=== PATIENT | male | born 1960 | race Two or more races ===

== ENCOUNTER 2016-07-16 11:44 | Emergency (ER) | payer OTHER ==
[2016-07-16] MEDS ORDERED: ONDANSETRON 4 MG/2 ML VIAL IVP ONE (12:08)
[2016-07-16] MEDS ORDERED: NS 1,000 ML IV ONE (12:08)
--- NOTE | 2016-07-16 12:22 | CPEKG ---
Heart Rate: 56 RR Interval: 1071 P-R Interval: 208 QRSD Interval: 98 QT Interval: 432 QTC Interval: 417 P Chapman: 27 QRS Chapman: 63 T Wave Chapman: 137 EKG Severity - ABNORMAL ECG - EKG Impression: SINUS RHYTHM EKG Impression: BORDERLINE INFERIOR Q WAVES EKG Impression: REPOL ABNRM SUGGESTS ISCHEMIA, ANT-LAT LEADS Electronically Signed By: Catracho Coto 16-Jul-2016 13:09:42
[2016-07-16 12:25] VITALS: O2SAT 96
[2016-07-16 12:40] LABS: % IMMATURE GRANULYOCYTES 0.2 % (0.0-1.1); ABSOLUTE IMMATURE GRANULOCYTES 0.02 10^3/uL (0.00-0.10); ADD DIFF? NO; ADD MORPH? NO; ADD SCAN? NO; ATYPICAL LYMPHOCYTE FLAG 10 (0-99); FRAGMENT RBC FLAG 0 (0-99); HEMATOCRIT 43.3 % (40.0-51.0); HEMOGLOBIN 14.6 g/dL (13.7-17.5); LEFT SHIFT FLG 0 (0-99); LIPEMIA HEMOLYSIS FLAG 80 (0-99); MEAN CELL HEMOGLOBIN 28.8 pg (27.9-34.1); MEAN CELL HEMOGLOBIN CONCENTR. 33.7 g/dL (32.4-36.7); MEAN CELL VOLUME 85.4 fL (81.5-99.8); MEAN PLATELET VOLUME 9.9 fL (8.7-11.7); PLATELET CLUMPS FLAG 0 (0-99); PLATELET COUNT 205 10^3/uL (150-400); RED BLOOD CELL COUNT 5.07 10^6/uL (4.40-6.38); RED CELL DISTRIBUTION WIDTH 12.5 % (11.5-15.2)
[2016-07-16 12:56] LABS: ANION GAP 14 mEq/L (8-16); CALCIUM 9.2 mg/dL (8.5-10.4); CARBON DIOXIDE 24 mEq/l (22-31); CHLORIDE 105 mEq/L (97-110); CREATININE 0.8 mg/dL (0.7-1.3); GLOMERULAR FILTRATION RATE > 60; GLUCOSE 121 mg/dL (70-100); POTASSIUM 3.9 mEq/L (3.5-5.2); SODIUM 143 mEq/L (134-144)
[2016-07-16] MEDS ORDERED: MECLIZINE HCL 25 MG TAB PO ONE (12:58)
--- NOTE | 2016-07-16 13:10 | EDPHY ---
H & P Stated Complaint: dizzy HTN & vomitting Time Seen by Provider: 07/16/16 12:43 HPI/ROS: CHIEF COMPLAINT: Vertigo, vomiting HISTORY OF PRESENT ILLNESS: The patient is a 56-year-old man who comes to the emergency department complaining of vertigo. He has had the symptoms for about 2 hours. They began suddenly at 11:00 a.m. when he was looking up and down at a shelf. He has never had these symptoms before. They are worsening with head position or movement. They are okay when he is calm. He feels a spinning sensation. He does not feel that he is going to faint. He denies chest pain or shortness of breath. No fevers or recent illness. REVIEW OF SYSTEMS: Constitutional: denies: chills, fever, recent illness, recent injury EENTM: denies: blurred vision, double vision, nose congestion Respiratory: denies: cough, shortness of breath Cardiac: denies: chest pain, irregular heart rate, lightheadedness, palpitations Gastrointestinal/Abdominal: denies: abdominal pain, diarrhea, nausea, vomiting, blood streaked stools Genitourinary: denies: dysuria, frequency, hematuria, pain Musculoskeletal: denies: joint pain, muscle pain Skin: denies: lesions, rash, jaundice, bruising Neurological: See HPI denies: headache, numbness, paresthesia, tingling, weakness Hematologic/Lymphatic: denies: blood clots, easy bleeding, easy bruising Immunologic/allergic: denies: HIV/AIDS, transplant EXAM: GENERAL: Well-appearing, well-nourished and in no acute distress. HEAD: Atraumatic, normocephalic. EYES: Pupils equal round and reactive to light, extraocular movements intact, sclera anicteric, conjunctiva are normal. Statements primarily when looking to the left. ENT: TMs normal, nares patent, oropharynx clear without exudates. Moist mucous membranes. NECK: Normal range of motion, supple without lymphadenopathy or JVD. LUNGS: Breath sounds clear to auscultation bilaterally and equal. No wheezes rales or rhonchi. HEART: Regular rate and rhythm without murmurs, rubs or gallops. ABDOMEN: Soft, nontender, normoactive bowel sounds. No guarding, no rebound. No masses appreciated. BACK: No CVA tenderness, no spinal tenderness, step-offs or deformities EXTREMITIES: Normal range of motion, no pitting or edema. No clubbing or cyanosis. NEUROLOGICAL: NIH stroke score is 0. Cranial nerves II through XII grossly intact. Normal speech, normal gait. 5/5 strength, normal movement in all extremities, normal sensation, normal cerebellar exam, no pronator drift PSYCH: Normal mood, normal affect. SKIN: Warm, dry, normal turgor, no visible rashes or lesions. Source: Patient Exam Limitations: No limitations - Personal History Current Tetanus/Diphtheria Vaccine: Unsure Current Tetanus Diphtheria and Acellular Pertussis (TDAP): Unsure - Medical/Surgical History Hx Asthma: No Hx Chronic Respiratory Disease: No Hx Diabetes: No Hx Cardiac Disease: Yes Hx Renal Disease: No Hx Cirrhosis: No Hx Alcoholism: No Hx HIV/AIDS: No Hx Splenectomy or Spleen Trauma: No Other PMH: high chol, HTN, AMI X2, blood thinner - Family History Significant Family History: No pertinent family hx - Social History Smoking Status: Never smoked Alcohol Use: Sober Drug Use: None Constitutional: Initial Vital Signs Temperature (C) 36.4 C 07/16/16 11:47 Heart Rate 54 L 07/16/16 11:47 Respiratory Rate 16 07/16/16 11:47 Blood Pressure 156/97 H 07/16/16 11:47 O2 Sat (%) 94 07/16/16 11:47 O2 Delivery Mode Nasal Cannula O2 (L/minute) 1 Allergies/Adverse Reactions: No Known Allergies Allergy (Unverified 07/16/16 11:50) Home Medications: Medication Instructions Recorded Meclizine HCl [Meclizine HCl 25 mg 25 mg PO BID #0 tab 07/16/16 (RX,OTC)] Medical Decision Making - Diagnostics EKG Interpretation: An EKG obtained and was read and documented in trace view. Please see trace view for full reading and report. Sinus rhythm rate of 56, T-wave inversions inferior and laterally, no previous for comparison ED Course/Re-evaluation: The patient has nystagmus and complains of intermittent vertigo and nausea. He has nystagmus when looking to the left. Maxine maneuver performed and the patient is feeling much better. 1:30 p.m. the patient is feeling completely better. His hypertension has resolved. He no longer gets nystagmus with turning from left to right. He has received meclizine. We will continue to observe. 2:40 p.m. patient is feeling completely better. He is eager to go home. I have written him a prescription for meclizine. I will have him follow up with ENT. His family agrees with this plan. We discussed indications for returning. Additional verbal discharge instructions given. Differential Diagnosis: Partial list of the Differential diagnosis considered include but were not limited to; benign positional vertigo, CVA, infection and although unlikely based on the history and physical exam, I also considered aneurysm, dissection , neuropathy. I discussed these differential diagnoses and the plan with the patient as well as the usual and expected course. The patient understands that the diagnosis is provisional and that in medicine we are not always correct and that further workup is often warranted. Usual and customary warnings were given. All of the patient's questions were answered. The patient was instructed to return to the emergency department should the symptoms at all worsen or return, otherwise to followup with the physician as we discussed. - Data Points Laboratory Results: Laboratory Results 07/16/16 12:01 07/16/16 12:01 07/16/16 12:01 WBC 9.59 H 10^3/uL (3.80-9.50) RBC 5.07 10^6/uL (4.40-6.38) Hgb 14.6 g/dL (13.7-17.5) Hct 43.3 % (40.0-51.0) MCV 85.4 fL (81.5-99.8) MCH 28.8 pg (27.9-34.1) MCHC 33.7 g/dL (32.4-36.7) RDW 12.5 % (11.5-15.2) Plt Count 205 10^3/uL (150-400) MPV 9.9 fL (8.7-11.7) Neut % (Auto) 44.5 % (39.3-74.2) Lymph % (Auto) 44.8 % (15.0-45.0) [place] % (Auto) 8.1 % (4.5-13.0) Eos % (Auto) 1.9 % (0.6-7.6) Baso % (Auto) 0.5 % (0.3-1.7) Nucleat RBC Rel Count 0.0 % (0.0-0.2) Absolute Neuts (auto) 4.26 10^3/uL (1.70-6.50) Absolute Lymphs (auto) 4.30 H 10^3/uL (1.00-3.00) Absolute Monos (auto) 0.78 10^3/uL (0.30-0.80) Absolute Eos (auto) 0.18 10^3/uL (0.03-0.40) Absolute Basos (auto) 0.05 10^3/uL (0.02-0.10) Absolute Nucleated RBC 0.00 10^3/uL (0-0.01) Immature Gran % 0.2 % (0.0-1.1) Immature Gran # 0.02 10^3/uL (0.00-0.10) Sodium 143 mEq/L (134-144) Potassium 3.9 mEq/L (3.5-5.2) Chloride 105 mEq/L (97-110) Carbon Dioxide 24 mEq/l (22-31) Anion Gap 14 mEq/L (8-16) BUN 15 mg/dL (7-23) Creatinine 0.8 mg/dL (0.7-1.3) Estimated GFR > 60 Glucose 121 H mg/dL (70-100) Calcium 9.2 mg/dL (8.5-10.4) Medications Given: Discontinued Medications Sodium Chloride (Ns) 1,000 mls @ 0 mls/hr IV ONCE ONE PRN Reason: Wide Open Stop: 07/16/16 12:09 Last Admin: 07/16/16 12:23 Dose: 1,000 mls Meclizine HCl (Meclizine Hcl) 50 mg PO EDNOW ONE Stop: 07/16/16 12:59 Last Admin: 07/16/16 13:02 Dose: 50 mg Ondansetron HCl (Zofran) 4 mg IVP EDNOW ONE Stop: 07/16/16 12:09 Last Admin: 07/16/16 12:10 Dose: 4 mg Departure - Departure Disposition: Home, Routine, Self-Care Clinical Impression: Benign paroxysmal positional vertigo Qualifiers: Laterality: left Qualifier Code: (H81.12) Benign paroxysmal vertigo, left ear Condition: Fair Instructions: Benign Paroxysmal Positional Vertigo (ED) Referrals: [place],. [Primary Care Provider] - As per Instructions Nayla Farah PA [Physician Call Box Wirer] - As per Instructions Prescriptions: Meclizine HCl [Meclizine HCl 25 mg (RX,OTC)] 25 mg PO BID #0 tab
[2016-07-16 14:57] VITALS: BP 146/81; PULSE 64; RESP 12; TEMP 97
== END 2016-07-16 14:52 | disposition home or self-care (01) ==
DX: H81.12 Benign paroxysmal vertigo, left ear (principal); I10 Essential (primary) hypertension; I25.2 Old myocardial infarction
CPT/HCPCS: 96374; J2405